=== PATIENT | female | born 1945 | race Caucasian/White ===

== ENCOUNTER 2016-11-25 21:25 | Emergency (ER) | payer BC, MEDICARE ==
[2016-11-25] MEDS ORDERED: Nitroglycerin 2% Ointment 1 INCH/1 GM Packet ONE (21:40)
[2016-11-25] MEDS ORDERED: Metoprolol Tartrate 5 MG/5 ML VIAL ONE ×2 (21:40→21:57)
[2016-11-25 22:06] LABS: ALT (SGPT) 15 U/L (0-55); AST (SGOT) 17 U/L (5-34); Alkaline Phosphatase 89 U/L (40-150); Anion Gap 19 mmol/L (10-20); BUN (Urea Nitrogen) 51 mg/dL (9.8-20.1); Bilirubin, Total 0.4 mg/dL (0.2-1.2); Calc. Creatinine Clearance 0 mL/min (70-130); Calcium 9.8 mg/dL (7.8-10.44); Carbon Dioxide 21 mmol/L (23-31); Chloride 102 mmol/L (98-107); Estimated GFR-MDRD 22; Globulin 3.9 g/dL (2.4-3.5); Lipase 66 U/L (8-78); Protein, Total 8.2 g/dL (5.8-8.1)
[2016-11-25 22:08] LABS: #Lymphocytes 0.9 thou/uL (1.20-3.40); #Monocytes 0.4 thou/uL (0.11-0.59); %Basophils 0.2 % (0.0-1.0); %Monocytes 2.9 % (0.0-10.0); Hematocrit 41.4 % (36.0-47.0); Mean Platelet Volume 9.2 fL (7.4-10.4); Red Blood Cell (RBC) Count 4.74 mill/uL (4.20-5.40); White Blood Cell (WBC) Count 15.3 thou/uL (4.8-10.8)
[2016-11-25 22:09] LABS: Troponin I 0.047 ng/mL (< 0.028)
[2016-11-25] MEDS ORDERED: Enoxaparin Sodium 100 MG/ML SYRINGE ONE (22:27)
[2016-11-25] MEDS ORDERED: Furosemide 40 MG/4 ML VIAL ONE (22:27)
[2016-11-25] MEDS ORDERED: Insulin Regular 300 UNITS/3 ML VIAL ONE (22:28)
[2016-11-25] MEDS ORDERED: Acetaminophen 500 MG TAB ONE (22:31)
--- NOTE | 2016-11-25 23:06 | RAD ---
PORTABLE CHEST 11/25/16 An AP portable film at 2143 is compared with a 08/24/16 study. Moderate cardiomegaly is about the same as before. There are no clear congestive changes, pleural ef fusions or focal pulmonary infiltrates. Median sternotomy sutures are present from prior surgery. Ca lcific changes are seen in the aorta. A right shoulder arthroplasty is present. There is severe dege nerative change of the left glenohumeral joint. IMPRESSION: Moderate cardiomegaly and arteriosclerosis with minimal change since the prior study. POS: HOME
[2016-11-25 23:14] LABS: Bilirubin Negative (Negative); Blood, Urine Small (Negative); Glucose, Urine (Dipstick) 500 mg/dL (Negative); Ketone, Urine Negative (Negative); Nitrite Negative (Negative); Protein, Urine (Dipstick) Trace mg/dL (Neg-Trace); Urobilinogen 0.2 mg/dL (0.2-1.0)
[2016-11-25 23:15] LABS: Bacteria/HPF None Seen HPF (None Seen); RBC/HPF 0-3 HPF (0-3); Squamous Epithelial 0-3 HPF (0-3); WBC/HPF None Seen HPF (0-3)
== END 2016-11-25 23:10 | disposition short-term general hospital (02) ==
LOC: BURERS 21:25
DX: I24.9 Acute ischemic heart disease, unspecified (principal); N18.9 Chronic kidney disease, unspecified; E11.22 Type 2 diabetes mellitus with diabetic chronic kidney disease; R79.1 Abnormal coagulation profile; I25.2 Old myocardial infarction; E78.5 Hyperlipidemia, unspecified; I12.9 Hypertensive chronic kidney disease with stage 1 through stage 4 chronic kidney disease, or unspecified chronic kidney disease; M06.9 Rheumatoid arthritis, unspecified; Z87.891 Personal history of nicotine dependence; Z79.82 Long term (current) use of aspirin; Z79.899 Other long term (current) drug therapy
CPT/HCPCS: 71010; 80053; 81003; 81015; 82553; 83690; 83880; 84484; 85025; 85379; 93005; 94760; 96361; 96372; 96374; 96375; J1650; J1815; J1940

== ENCOUNTER 2017-01-04 10:45 | Outpatient (CLI) | payer BC, MEDICARE ==
[2017-01-04 18:04] LABS: Phosphorus 3.7 mg/dL (2.3-4.7)
== END 2017-01-04 10:46 | disposition home or self-care (01) ==
LOC: BURLAB 10:45
PROVIDERS: ATTEND Internal Medicine Nephrology
DX: N18.3 Chronic kidney disease, stage 3 (moderate) (principal)
CPT/HCPCS: 36415; 82565; 84100

== ENCOUNTER 2017-04-05 08:59 | Outpatient (CLI) | payer BC, MEDICARE ==
[2017-04-05 09:36] LABS: Hemoglobin 13.9 g/dL (12.0-16.0); Mean Corpuscular HGB CONC 32.4 g/dL (32.0-36.0); Mean Corpuscular Volume 83.5 fl (81.0-99.0); Mean Platelet Volume 9.3 fL (7.4-10.4); Platelet Count 177 thou/uL (130-400); Red Blood Cell (RBC) Count 5.12 mill/uL (4.20-5.40); White Blood Cell (WBC) Count 4.7 thou/uL (4.8-10.8)
[2017-04-05 09:44] LABS: Anion Gap 15 mmol/L (10-20); BUN (Urea Nitrogen) 33 mg/dL (9.8-20.1); Calc. Creatinine Clearance 0 mL/min (70-130); Calcium 9.3 mg/dL (7.8-10.44); Carbon Dioxide 29 mmol/L (23-31); Chloride 103 mmol/L (98-107); Estimated GFR-MDRD 27; Glucose 118 mg/dL (80-115); Potassium 3.4 mmol/L (3.5-5.1); Sodium 144 mmol/L (136-145)
[2017-04-05 18:00] LABS: Iron Binding Capacity, Total 365 mcg/dL (265-497)
[2017-04-05 18:19] LABS: Creatinine, Urine 105.06 mg/dL (47-110)
== END 2017-04-05 09:00 | disposition home or self-care (01) ==
LOC: BURLAB 08:59
PROVIDERS: ATTEND Internal Medicine Nephrology
DX: I12.9 Hypertensive chronic kidney disease with stage 1 through stage 4 chronic kidney disease, or unspecified chronic kidney disease (principal); N18.3 Chronic kidney disease, stage 3 (moderate); D63.1 Anemia in chronic kidney disease; D50.9 Iron deficiency anemia, unspecified; R80.9 Proteinuria, unspecified; R53.82 Chronic fatigue, unspecified
CPT/HCPCS: 80048; 82570; 82728; 83550; 83970; 84156; 85027

== ENCOUNTER 2017-04-20 07:38 | Emergency (ER) | payer BC, MEDICARE ==
[2017-04-20] MEDS ORDERED: HYDROcodone/Acetaminophen 10/325 mg Tablet ONE (08:06)
[2017-04-20] MEDS ORDERED: Fentanyl 100 MCG/2 ML VIAL ONE (08:14)
[2017-04-20 08:27] LABS: #Basophils 0.1 thou/uL (0.0-0.2); #Eosinphils 0.1 thou/uL (0.0-0.7); #Lymphocytes 1.1 thou/uL (1.20-3.40); #Monocytes 0.5 thou/uL (0.11-0.59); #Neutrophils 5.3 thou/uL (1.40-6.50); %Basophils 0.8 % (0.0-1.0); %Eosinophils 1.4 % (0.0-10.0); %Lymphocytes 15.7 % (21.0-51.0); %Monocytes 6.4 % (0.0-10.0); %Neutrophils 75.7 % (42.0-75.0); Hemoglobin 15.1 g/dL (12.0-16.0); Mean Corpuscular HGB CONC 33.2 g/dL (32.0-36.0); Mean Corpuscular Hemoglobin 27.7 pg (27.0-31.0); Mean Corpuscular Volume 83.4 fl (81.0-99.0); Mean Platelet Volume 10.3 fL (7.4-10.4); Platelet Count 201 thou/uL (130-400); RBC Distribution Width 16.8 % (11.5-14.5); Red Blood Cell (RBC) Count 5.44 mill/uL (4.20-5.40); White Blood Cell (WBC) Count 7.1 thou/uL (4.8-10.8)
[2017-04-20 08:44] LABS: CKMB 1.5 ng/mL (0-6.6); Troponin I 0.069 ng/mL (< 0.028)
[2017-04-20] MEDS ORDERED: Ketorolac Tromethamine 30 MG/ML VIAL ONE (09:00)
[2017-04-20 09:14] LABS: ALT (SGPT) 10 U/L (8-55); AST (SGOT) 13 U/L (5-34); Albumin 3.7 g/dL (3.4-4.8); Alkaline Phosphatase 112 U/L (40-150); Anion Gap 15 mmol/L (10-20); BUN (Urea Nitrogen) 28 mg/dL (9.8-20.1); Bilirubin, Total 0.9 mg/dL (0.2-1.2); Calc. Creatinine Clearance 0 mL/min (70-130); Carbon Dioxide 30 mmol/L (23-31); Chloride 99 mmol/L (98-107); Estimated GFR-MDRD 27; Globulin 3.7 g/dL (2.4-3.5); Glucose 150 mg/dL (80-115); Potassium 4.2 mmol/L (3.5-5.1); Protein, Total 7.4 g/dL (6.0-8.3); Sodium 140 mmol/L (136-145)
--- NOTE | 2017-04-20 17:56 | CT ---
CT OF THE BRAIN WITHOUT CONTRAST 04/20/17 Comparison is made with a prior CT of the brain study dated 01/24/15. Diffuse prominent ischemic changes are present throughout the brain with areas of deep white matter lucency and other areas of focal encephalomalacia from prior infarcts. This is particularly true in the right parietal and right occipital regions. These were present previously. Some lacunar infarcts are probably present in the basal ganglia. There were no findings strongly indicative of acute stro ke. There was no sign of mass, edema or bleeding. The visible paranasal sinuses and mastoid air cell s are clear. IMPRESSION: Diffuse chronic ischemic changes and evidence of old strokes but no acute intracranial findings. Exa m minimally different than the 2015 study. POS: HOME
--- NOTE | 2017-04-20 18:00 | CT ---
CT OF THE CERVICAL SPINE 04/20/17 Axial slices were acquired, then coronal and sagittal reconstructions were done. No fracture or area of bony destruction was seen. There is loss of the normal cervical lordosis whic h can sometimes be due to muscle spasm. Some calcifications are seen within the vertebral arteries, particularly on the right side. The prevertebral soft tissues are normal in thickness. The surroundi ng soft tissues of the neck were unremarkable. The C1 to dens distance is normal. Findings by level follow: C1-C2: No acute findings. C2-C3: No acute findings. C3-C4: Moderate left foraminal narrowing due to osteophytes. C4-C5: Moderate to severe right foraminal narrowing with severe right facet arthritis. C5-C6: No acute findings. C6-C7: No acute findings. C7-T1: No acute findings. T1-T1: No acute findings. The lung apices show a little bit of either scarring or atelectasis but no findings of acute concern . IMPRESSION: Loss of cervical lordosis. Foraminal narrowing on the left at C3-C4 and on the right at C4-C5 as raven cribed above. POS: HOME
== END 2017-04-20 11:49 | disposition home or self-care (01) ==
LOC: BURERS 07:38
DX: S13.4XXA Sprain of ligaments of cervical spine, initial encounter (principal); M47.892 Other spondylosis, cervical region; I25.2 Old myocardial infarction; E11.9 Type 2 diabetes mellitus without complications; E78.5 Hyperlipidemia, unspecified; I10 Essential (primary) hypertension; M06.9 Rheumatoid arthritis, unspecified; Z87.891 Personal history of nicotine dependence; Z86.73 Personal history of transient ischemic attack (TIA), and cerebral infarction without residual deficits; Z79.4 Long term (current) use of insulin; Z79.891 Long term (current) use of opiate analgesic; Z79.899 Other long term (current) drug therapy; X58.XXXA Exposure to other specified factors, initial encounter
CPT/HCPCS: 36415; 70450; 72125; 80053; 82553; 84484; 85025; 94760; 96374; 96375; J1885; J3010

== ENCOUNTER 2017-09-18 11:56 | Emergency (ER) | payer BC, MEDICARE ==
[2017-09-18] MEDS ORDERED: Ondansetron HCl/PF 4 MG/2 ML Vial ONE (12:34)
[2017-09-18] MEDS ORDERED: Famotidine In NaCl 20 mg/50 ml Premix Bag ONE ×2 (12:34→12:35)
[2017-09-18 12:49] LABS: #Lymphocytes 0.4 thou/uL (1.20-3.40); #Monocytes 0.3 thou/uL (0.11-0.59); #Neutrophils 2.5 thou/uL (1.40-6.50); %Basophils 1.2 % (0.0-1.0); %Eosinophils 0.3 % (0.0-10.0); %Neutrophils 77.4 % (42.0-75.0); Hemoglobin 13.9 g/dL (12.0-16.0); Mean Corpuscular HGB CONC 31.8 g/dL (32.0-36.0); Mean Corpuscular Hemoglobin 27.4 pg (27.0-31.0); Mean Corpuscular Volume 86.1 fl (81.0-99.0); Platelet Count 116 thou/uL (130-400); RBC Distribution Width 16.1 % (11.5-14.5); Red Blood Cell (RBC) Count 5.09 mill/uL (4.20-5.40); White Blood Cell (WBC) Count 3.3 thou/uL (4.8-10.8)
[2017-09-18 13:02] LABS: Anisocytosis SLIGHT = 6-15 cells (100X) (0-5/hpf); Large Platelets SLIGHT; MDiff Complete? YES; PLT Morphology Comment Appears Decreased
[2017-09-18 13:04] LABS: ALT (SGPT) 11 U/L (8-55); AST (SGOT) 20 U/L (5-34); Albumin 3.4 g/dL (3.4-4.8); Alkaline Phosphatase 87 U/L (40-150); Anion Gap 20 mmol/L (10-20); BUN (Urea Nitrogen) 40 mg/dL (9.8-20.1); Bilirubin, Total 0.9 mg/dL (0.2-1.2); Calc. Creatinine Clearance 0 mL/min (70-130); Calcium 9.6 mg/dL (7.8-10.44); Carbon Dioxide 25 mmol/L (23-31); Chloride 99 mmol/L (98-107); Estimated GFR-MDRD 24; Globulin 3.8 g/dL (2.4-3.5); Glucose 145 mg/dL (80-115); Lipase 61 U/L (8-78); Potassium 4.1 mmol/L (3.5-5.1); Protein, Total 7.2 g/dL (6.0-8.3); Sodium 140 mmol/L (136-145)
[2017-09-18 13:05] LABS: CKMB 1.5 ng/mL (0-6.6); Troponin I 0.225 ng/mL (< 0.028)
[2017-09-18] MEDS ORDERED: Enoxaparin Sodium 100 MG/ML SYRINGE ONE (13:25)
--- NOTE | 2017-09-18 15:07 | RAD ---
PORTABLE CHEST 1 VIEW: DATE: 09/18/17. TIME: 1:17 p.m. HISTORY: Chest pain, coronary artery disease, CABG. FINDINGS: Comparison is made with the exam of 06/06/17. There are changes of median sternotomy and prior cardiac surgery. The heart size is enlarged. The l ungs are expanded without confluent areas of consolidation, pneumothorax, radha pulmonary edema, or p leural effusions. There are postop changes of right shoulder replacement. Degenerative changes are seen in the left shoulder joint. IMPRESSION: No acute process. POS: [facility]
== END 2017-09-18 15:15 | disposition short-term general hospital (02) ==
LOC: BURERS 11:56
DX: I21.4 Non-ST elevation (NSTEMI) myocardial infarction (principal); I25.2 Old myocardial infarction; I10 Essential (primary) hypertension; E11.9 Type 2 diabetes mellitus without complications; E78.5 Hyperlipidemia, unspecified; M06.9 Rheumatoid arthritis, unspecified; Z87.891 Personal history of nicotine dependence; Z79.899 Other long term (current) drug therapy; Z79.4 Long term (current) use of insulin; Z86.73 Personal history of transient ischemic attack (TIA), and cerebral infarction without residual deficits; Z79.891 Long term (current) use of opiate analgesic
CPT/HCPCS: 71010; 80053; 82553; 83690; 84484; 85025; 93005; 96365; 96372; 96375; J1650; J2405

== ENCOUNTER 2018-01-12 08:02 | Emergency (ER) | payer BC, MEDICARE ==
--- NOTE | 2018-01-12 15:40 | RAD ---
RIGHT RIBS WITH PA CHEST: Date: 01-12-18 Comparison: 09-20-17 FINDINGS: Multiple views reveal no gross rib fractures. The bones are somewhat osteopenic. Subtle fractures cou ld be easily missed in this patient, particularly in the lower ribs. There is no sign of pleural effu remi or pneumothorax. The lungs are clear. The heart is moderately enlarged as usual. There are no co ngestive changes. A prior CABG is noted. IMPRESSION: Cardiomegaly but no acute findings. POS: HOME
== END 2018-01-12 09:00 | disposition home or self-care (01) ==
LOC: BURERS 08:02
DX: S20.211A Contusion of right front wall of thorax, initial encounter (principal); I25.2 Old myocardial infarction; E11.9 Type 2 diabetes mellitus without complications; E78.5 Hyperlipidemia, unspecified; M06.9 Rheumatoid arthritis, unspecified; I11.0 Hypertensive heart disease with heart failure; I50.9 Heart failure, unspecified; Z87.891 Personal history of nicotine dependence; Z79.4 Long term (current) use of insulin; Z86.73 Personal history of transient ischemic attack (TIA), and cerebral infarction without residual deficits; Z79.02 Long term (current) use of antithrombotics/antiplatelets; Z79.51 Long term (current) use of inhaled steroids; Z79.899 Other long term (current) drug therapy; X50.9XXA Other and unspecified overexertion or strenuous movements or postures, initial encounter